=== PATIENT | female | born 1945 | race Caucasian/White ===

== ENCOUNTER 2021-05-08 20:43 | Emergency (ER) | payer MEDICARE, OTHER ==
--- NOTE | 2021-05-08 20:55 | EDM.PDOC ---
ED HPI GENERAL MEDICAL PROBLEM - General Chief Complaint: General Stated Complaint: [facility] Time Seen by Provider: 05/08/21 20:45 - History of Present Illness INITIAL COMMENTS - FREE TEXT/NARRATIVE: 75-year-old female presents the emergency room brought in by [facility] after aspirating some nystatin swish and swallow solution. The patient had just gone through a series of nebulizers and she always uses nystatin after this and then she opened up a bottle of vinegar to clean her equipment and the fumes from that caused her to suck ended she inadvertently aspirated some of that nystatin. She has been coughing has not been short of breath has a little bit of discomfort. She is a little anxious also. Prior to this the patient denies any problems as times is going by the patient is doing better. 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 The patient recently stopped her diuretics because she was getting too dry. - Related Data Allergies Allergy/AdvReac Type Severity Reaction Status Date / Time No Known Allergies Allergy Verified 05/08/21 20:54 Home Meds: Home Meds Albuterol/Ipratropium [DuoNeb 3.0-0.5 MG/3 ML] 3 ml INH QID 05/08/21 [History] Baclofen 5 - 10 mg PO ASDIRECTED 05/08/21 [History] Budesonide [Pulmicort] 2 ml INH BID 05/08/21 [History] Citalopram Hydrobromide [Celexa] 20 mg PO DAILY 05/08/21 [History] Formoterol [Perforomist] 20 mcg INH BID 05/08/21 [History] Irbesartan [Avapro] 75 mg PO DAILY 05/08/21 [History] Levothyroxine [Synthroid] 50 mcg PO DAILY 05/08/21 [History] Nystatin [Mycostatin] 5 ml PO QID 05/08/21 [History] Omeprazole 20 mg PO BID 05/08/21 [History] Verapamil [Verelan] 120 mg PO DAILY 05/08/21 [History] atorvaSTATin Calcium [Lipitor] 40 mg PO DAILY 05/08/21 [History] predniSONE [Prednisone] 15 mg PO DAILY 05/08/21 [History] ED ROS GENERAL - Review of Systems Review Of Systems: See Below Constitutional: Reports: No Symptoms HEENT: Reports: No Symptoms Respiratory: Reports: No Symptoms, Shortness of Breath Cardiovascular: Reports: No Symptoms. Denies: Chest Pain Endocrine: Reports: No Symptoms GI/Abdominal: Reports: No Symptoms : Reports: No Symptoms Musculoskeletal: Reports: No Symptoms Skin: Reports: No Symptoms Neurological: Reports: No Symptoms ED EXAM, GENERAL - Physical Exam Exam: See Below Exam Limited By: No Limitations General Appearance: Alert, No Apparent Distress Eye Exam: Bilateral Eye: Normal Inspection Ears: Normal External Exam, Normal Canal, Hearing Grossly Normal, Normal TMs Nose: Normal Inspection, Normal Mucosa, No Blood Throat/Mouth: Normal Inspection, Normal Lips, Normal Teeth, Normal Gums, Normal Oropharynx, Normal Voice, No Airway Compromise Head: Atraumatic, Normocephalic Neck: Normal Inspection, Supple, Non-Tender, Full Range of Motion Respiratory/Chest: No Respiratory Distress, Normal Breath Sounds, No Accessory Muscle Use, Chest Non-Tender, Other (She has some coarse breath sounds). No: Rhonchi, Wheezing Cardiovascular: Normal Peripheral Pulses, Regular Rate, Rhythm, No Edema GI/Abdominal: Normal Bowel Sounds, Soft, Non-Tender Back Exam: Normal Inspection. No: CVA Tenderness (L), CVA Tenderness (R) Neurological: Alert, Oriented, Normal Cognition Course - Vital Signs Last Recorded V/S: Last Vital Signs Temp 35.1 C L 05/08/21 20:45 Pulse 109 H 05/08/21 20:45 Resp 17 05/08/21 20:45 BP 107/80 05/08/21 20:45 Pulse Ox 96 05/08/21 20:45 - Orders/Labs/Meds Orders: Active Orders 24 hr Category Date Time Status Chest 1V Frontal [CR] Stat Exams 05/08/21 20:55 Taken Labs: Laboratory Tests 05/08/21 05/08/21 Range/Units 21:15 21:15 WBC 11.35 H (3.98-10.04) K/mm3 RBC 4.19 (3.98-5.22) M/mm3 Hgb 12.9 (11.2-15.7) gm/dl Hct 40.4 (34.1-44.9) % MCV 96.4 H (79.4-94.8) fl MCH 30.8 (25.6-32.2) pg MCHC 31.9 L (32.2-35.5) g/dl RDW Std Deviation 51.1 H (36.4-46.3) fL Plt Count 376 H (182-369) K/mm3 MPV 8.8 L (9.4-12.3) fl Neut % (Auto) 69.1 (34.0-71.1) % Lymph % (Auto) 16.7 L (19.3-51.7) % [place] % (Auto) 12.4 (4.7-12.5) % Eos % (Auto) 0.4 L (0.7-5.8) Baso % (Auto) 0.3 (0.1-1.2) % Neut # (Auto) 7.85 H (1.56-6.13) K/mm3 Lymph # (Auto) 1.89 (1.18-3.74) K/mm3 [place] # (Auto) 1.41 H (0.24-0.36) K/mm3 Eos # (Auto) 0.04 (0.04-0.36) K/mm3 Baso # (Auto) 0.03 (0.01-0.08) K/mm3 Manual Slide Review Abnormal smear Sodium 138 (136-145) mEq/L Potassium 4.3 (3.5-5.1) mEq/L Chloride 101 (98-107) mEq/L Carbon Dioxide 22 (21-32) mEq/L Anion Gap 19.3 H (5-15) BUN 25 H (7-18) mg/dL Creatinine 1.6 H (0.55-1.02) mg/dL Est Cr Clr Drug Dosing 22.49 mL/min Estimated GFR (MDRD) 32 (>60) mL/min BUN/Creatinine Ratio 15.6 (14-18) Glucose 110 H (70-99) mg/dL Calcium 9.4 (8.5-10.1) mg/dL Total Bilirubin 0.6 (0.2-1.0) mg/dL AST 12 L (15-37) U/L ALT 25 (14-59) U/L Alkaline Phosphatase 113 (46-116) U/L Total Protein 7.0 (6.4-8.2) g/dl Albumin 3.5 (3.4-5.0) g/dl Globulin 3.5 gm/dL Albumin/Globulin Ratio 1.0 (1-2) Meds: Medications Discontinued Medications Generic Name Dose Route Start Last Admin Trade Name Eduardo PRN Reason Stop Dose Admin Lorazepam 0.5 mg 05/08/21 21:05 05/08/21 21:14 Lorazepam 2 Mg/Ml Sdv IVPUSH 05/08/21 21:06 0.5 mg ONETIME ONE Administration - Re-Assessments/Exams Free Text/Narrative Re-Assessment/Exam: 05/08/21 22:08 Patient is doing quite a bit better at this time chest x-ray reveals partially rotated study but no acute cardiopulmonary changes. 05/08/21 22:08 White count is minimally elevated could be a stress reaction BUN and creatinine are elevated modestly. I do not have priors for comparison 05/09/21 00:19 She continues to do well off oxygen and she would like to go home we will discharge her home. Departure - Departure Time of Disposition: 00:19 Disposition: Home, Self-Care 01 Clinical Impression: Aspiration into airway - Discharge Information Referrals: PCP,Not In Area [Primary Care Provider] - Forms: ED Department Discharge Additional Instructions: Return to the emergency room with any questions problems worsening symptoms. 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 Discuss overnight oximetry. Return to the emergency room with breathing difficulties fevers or chills. If you note do not have a local regular physician please establish with one. Sepsis Event Note (ED) - Focused Exam Vital Signs: Vital Signs Temp Pulse Resp BP Pulse Ox 05/08/21 20:45 35.1 C L 109 H 17 107/80 96 - My Orders Last 24 Hours: My Active Orders 05/08/21 20:55 Chest 1V Frontal [CR] Stat - Assessment/Plan Last 24 Hours: My Active Orders 05/08/21 20:55 Chest 1V Frontal [CR] Stat
[2021-05-08] MEDS ORDERED: LORazepam 2 MG/ML SDV IVPUSH ONE (21:05)
--- NOTE | 2021-05-09 12:07 | CR ---
Chest: Portable view of the chest was obtained. Comparison: No prior chest imaging is available. Heart size is normal. Slightly prominent right hilum is noted with minimal radiating densities. Minimal metallic density is seen within the right hilum. Lungs otherwise are clear. Bony structures show nothing acute. Impression: 1. Slightly prominent right hilum with mild radiating interstitial densities. Please correlate if patient has had previous surgery as an etiology. If no previous surgery has been performed, CT is then recommended. 2. Nothing acute is otherwise seen. Diagnostic code #3
== END 2021-05-09 00:26 | disposition home or self-care (01) ==
LOC: JD.ED 20:43
DX: T17.400A Unspecified foreign body in trachea causing asphyxiation, initial encounter (principal); Z79.899 Other long term (current) drug therapy
CPT/HCPCS: 36415; 71045; 80053; 85025; 96374; 99284; J2060; 99283